=== PATIENT | female | born 1940 | race Caucasian/White ===

== ENCOUNTER → 2017-01-24 | Outpatient (CLI) | payer MEDICARE ==
[~2017-01-24] VITALS: Ht 165.1 cm; Wt 46.7 kg
[~2017-01-24] MED LIST: ADV500 IH; ASPI-556 PO; GABA-531 PO; HYDR25TA PO; LISI1TAB13 PO; MIRT30 PO; NAPR375T4 PO; NIFE30TA66 PO; OMEP20 PO; OXYC1TAB66 PO; RISP2TAB76 PO
[2017-01-24 10:38] VITALS: BP 111/69
== END | disposition home or self-care (01) ==
LOC: SRCNTR 10:23
PROVIDERS: ATTEND Hospitalist
DX: J44.9 Chronic obstructive pulmonary disease, unspecified (principal); I10 Essential (primary) hypertension; R63.0 Anorexia; F32.9 Major depressive disorder, single episode, unspecified; F41.9 Anxiety disorder, unspecified; Z86.73 Personal history of transient ischemic attack (TIA), and cerebral infarction without residual deficits
CPT/HCPCS: G0463

== ENCOUNTER 2021-11-26 03:26 | Inpatient (IN) | payer MEDICARE, MEDICAID ==
[~2021-11-26] VITALS: Ht 165.1 cm; Wt 48.1 kg
[~2021-11-26 03:26] MED LIST changes: +GABA-1181 PO; -GABA-531 PO; -HYDR25TA PO; +HYDR25TA2 PO; +NAPR-1193 PO; -NAPR375T4 PO
[2021-11-26] MEDS ORDERED: IPRATROPIUM BROMIDE 0.5 MG/2.5 ML NEB SOLUTION NEB ONE ×3 (03:45→11:15)
[2021-11-26] MEDS ORDERED: ALBUTEROL SULFATE 5 MG/ML 20 ML NEB SOLN [BULK] NEB ONE ×3 (03:45→11:15)
[2021-11-26 03:51] LABS: BASOPHILS % (AUTO) 0.8 % (0.0-2.0); EOSINOPHILS % (AUTO) 8.5 % (1.0-6.0); HEMATOCRIT 40.3 % (36-46); HEMOGLOBIN 13.3 g/dL (12.0-16.0); LYMPHOCYTES # (AUTO) 2.5 K/uL (1.0-4.8); LYMPHOCYTES % (AUTO) 41.1 % (22.0-44.0); MEAN CORPUSCULAR HEMOGLOBIN 28.5 pg (26.0-34.0); MEAN CORPUSCULAR HGB CONC 33.1 G/dL (31.0-37.0); MEAN CORPUSCULAR VOLUME 86 fL (80-100); MONOCYTES # (AUTO) 0.7 K/uL (0.1-1.0); MONOCYTES % (AUTO) 11.3 % (2.0-9.0); NEUTROPHILS # (AUTO) 2.4 K/uL (1.8-7.7); NEUTROPHILS % (AUTO) 38.3 % (40.0-70.0); PLATELET COUNT (AUTO) 267 K/uL (150-450); RED BLOOD CELL COUNT(AUTO) 4.69 MIL/uL (4.00-5.20); RED CELL DISTRIBUTION WIDTH 15.6 % (11.5-14.5)
[2021-11-26 03:59] LABS: CALCIUM, TOTAL 9.3 mg/dL (8.8-10.5); CREATININE 1.2 mg/dL (0.60-1.30); POTASSIUM 4.1 mmol/L (3.5-5.1)
[2021-11-26 04:05] LABS: ALBUMIN 3.4 g/dL (3.4-5.0); BILIRUBIN,TOTAL 0.6 mg/dL (0.1-1.0); TOTAL PROTEIN, SERUM 8.2 g/dL (6.4-8.2)
[2021-11-26 05:29] LABS: COVID AG,FIA SOURCE NASAL SWAB
[2021-11-26] MEDS ORDERED: MIRT-92 (14:27)
[2021-11-26] MEDS ORDERED: IPRA3AMP24 NEB (14:27)
[2021-11-26] MEDS ORDERED: FERR324T4 PO (14:27)
[2021-11-26] MEDS ORDERED: FLUT1BLS IH (14:27)
[2021-11-26] MEDS ORDERED: HYDR25TA PO (14:27)
[2021-11-26] MEDS ORDERED: ALEN70TA65 PO (14:27)
[2021-11-26] MEDS ORDERED: LOSA100T58 PO (14:27)
[2021-11-26] MEDS ORDERED: ERGO500054 PO (14:27)
[2021-11-26] MEDS ORDERED: CALC-462 PO (14:27)
[2021-11-26] MEDS ORDERED: ALOG6.252 PO (14:27)
[2021-11-26] MEDS ORDERED: CALC-1271 PO (14:27)
[2021-11-26] MEDS ORDERED: ASPI-1444 PO (14:27)
[2021-11-26] MEDS ORDERED: SITA25 PO (14:27)
[2021-11-26] MEDS ORDERED: ARIP5TAB37 PO (14:27)
[2021-11-26] MEDS ORDERED: IPRAHFA IH (14:27)
[2021-11-26] MEDS ORDERED: ONDANSETRON HCL 4 MG/2 ML VIAL IVP PRN (14:30)
[2021-11-26] MEDS ORDERED: ALBUTEROL SULFATE 2.5 MG/0.5 ML NEB SOLUTION NEB PRN (14:30)
[2021-11-26] MEDS ORDERED: ZOLPIDEM TARTRATE 5 MG TABLET PO PRN (14:30)
[2021-11-26] MEDS ORDERED: NAPROXEN 375 MG TABLET PO PRN (14:30)
[2021-11-26] MEDS ORDERED: MAGNESIUM HYDROXIDE SUSPENSION 30 ML UDCUP PO PRN (14:30)
[2021-11-26] MEDS ORDERED: ACETAMINOPHEN 325 MG TABLET PO PRN (14:30)
[2021-11-26] MEDS ORDERED: BISACODYL 10 MG RECTAL RECTAL SUPPOSITORY PR PRN (14:30)
[2021-11-26] MEDS ORDERED: MORPHINE SULFATE 2 MG/ML SYRINGE IVP PRN (14:30)
[2021-11-26] MEDS ORDERED: IPRATROPIUM BROMIDE 0.5 MG/2.5 ML NEB SOLUTION NEB PRN (14:30)
[2021-11-26] MEDS ORDERED: OxyCODONE HCL/ACETAMINOPHEN 5-325 MG TABLET PO PRN (14:30)
[2021-11-26] MEDS: IPRATROPIUM BROMIDE 0.5 MG/2.5 ML NEB SOLUTION NEB SCH ×3 (14:58→22:59)
[2021-11-26] MEDS: ALBUTEROL SULFATE 2.5 MG/0.5 ML NEB SOLUTION NEB SCH ×3 (15:00→22:59)
[2021-11-26] MEDS: HEPARIN SODIUM,PORCINE 5,000 UNITS/ML VIAL SQ SCH ×2 (15:55→23:57)
[2021-11-26] MEDS: GABAPENTIN 300 MG CAPSULE PO SCH ×2 (15:55→21:58)
[2021-11-26] MEDS: MethylPREDNISolone SOD SUCC 125 MG/2 ML VIAL IVP SCH ×2 (17:21→23:57)
[2021-11-26 20:56] VITALS: BP 140/90
[2021-11-26] MEDS: RisperiDONE 2 MG TABLET PO SCH (21:58)
[2021-11-26] MEDS: DOCUSATE SODIUM 100 MG CAPSULE PO SCH (21:58)
[2021-11-26] MEDS: MIRTAZAPINE 30 MG TABLET PO SCH (21:58)
[2021-11-27 00:01] VITALS: BP 133/85
[2021-11-27] MEDS: ALBUTEROL SULFATE 2.5 MG/0.5 ML NEB SOLUTION NEB SCH ×6 (02:38→23:05)
[2021-11-27] MEDS: IPRATROPIUM BROMIDE 0.5 MG/2.5 ML NEB SOLUTION NEB SCH ×6 (02:38→23:05)
[2021-11-27 05:51] VITALS: BP 135/94
[2021-11-27] MEDS: MethylPREDNISolone SOD SUCC 125 MG/2 ML VIAL IVP SCH ×3 (05:59→18:43)
[2021-11-27 07:45] VITALS: BP 143/92
[2021-11-27] MEDS ORDERED: OMEPRAZOLE 20 MG CAPSULE PO SCH (09:00)
[2021-11-27] MEDS ORDERED: HYDROCHLOROTHIAZIDE 25 MG TABLET PO SCH (09:00)
[2021-11-27] MEDS ORDERED: ASPIRIN 81 MG DR TABLET PO SCH (09:00)
[2021-11-27] MEDS: NIFEdipine 30 MG ER TABLET PO SCH (10:23)
[2021-11-27] MEDS: HEPARIN SODIUM,PORCINE 5,000 UNITS/ML VIAL SQ SCH ×2 (10:23→16:22)
[2021-11-27] MEDS: GABAPENTIN 300 MG CAPSULE PO SCH ×3 (10:24→21:28)
[2021-11-27] MEDS: DOCUSATE SODIUM 100 MG CAPSULE PO SCH ×2 (10:24→21:28)
[2021-11-27] MEDS: RisperiDONE 2 MG TABLET PO SCH ×2 (10:24→21:28)
[2021-11-27] MEDS: PANTOPRAZOLE SODIUM 40 MG DR TABLET PO SCH (10:24)
[2021-11-27 11:56] VITALS: BP 142/91
[2021-11-27 16:13] VITALS: BP 139/99
[2021-11-27 19:41] VITALS: BP 124/75
[2021-11-27] MEDS: MIRTAZAPINE 30 MG TABLET PO SCH (21:28)
[2021-11-28] VITALS (7 sets, daily range): BP systolic 107–140; BP diastolic 76–97
[2021-11-28] MEDS: MethylPREDNISolone SOD SUCC 125 MG/2 ML VIAL IVP SCH ×4 (00:26→19:12)
[2021-11-28] MEDS: HEPARIN SODIUM,PORCINE 5,000 UNITS/ML VIAL SQ SCH ×3 (00:27→16:57)
[2021-11-28] MEDS: IPRATROPIUM BROMIDE 0.5 MG/2.5 ML NEB SOLUTION NEB SCH ×7 (03:00→23:11)
[2021-11-28] MEDS: ALBUTEROL SULFATE 2.5 MG/0.5 ML NEB SOLUTION NEB SCH ×7 (03:00→23:11)
[2021-11-28] MEDS ORDERED: DEXTROSE 50%-WATER 25 GM/50 ML SYRINGE IVP PRN ×2 (06:00)
[2021-11-28] MEDS: INSULIN LISPRO 100 UNITS/ML SQ PRN (06:46)
[2021-11-28 06:53] LABS: BASOPHILS % (AUTO) 0.6 % (0.0-2.0); EOSINOPHILS % (AUTO) 0 % (1.0-6.0); HEMATOCRIT 38.2 % (36-46); HEMOGLOBIN 12.5 g/dL (12.0-16.0); LYMPHOCYTES # (AUTO) 0.4 K/uL (1.0-4.8); MEAN CORPUSCULAR HEMOGLOBIN 28.2 pg (26.0-34.0); MEAN CORPUSCULAR HGB CONC 32.7 G/dL (31.0-37.0); MEAN CORPUSCULAR VOLUME 86 fL (80-100); MONOCYTES # (AUTO) 0.3 K/uL (0.1-1.0); MONOCYTES % (AUTO) 2.4 % (2.0-9.0); PLATELET COUNT (AUTO) 240 K/uL (150-450); RED BLOOD CELL COUNT(AUTO) 4.43 MIL/uL (4.00-5.20); RED CELL DISTRIBUTION WIDTH 16.2 % (11.5-14.5)
[2021-11-28 07:01] LABS: CALCIUM, TOTAL 9.7 mg/dL (8.8-10.5); CREATININE 1.74 mg/dL (0.60-1.30)
[2021-11-28 07:07] LABS: ALBUMIN 3.1 g/dL (3.4-5.0); BILIRUBIN,TOTAL 0.5 mg/dL (0.1-1.0); TOTAL PROTEIN, SERUM 7.7 g/dL (6.4-8.2)
[2021-11-28] MEDS: DOCUSATE SODIUM 100 MG CAPSULE PO SCH ×2 (09:00→21:28)
[2021-11-28] MEDS: ARIPiprazole 5 MG TABLET PO SCH (09:00)
[2021-11-28] MEDS: ASPIRIN 81 MG DR TABLET PO SCH (09:00)
[2021-11-28] MEDS: RisperiDONE 2 MG TABLET PO SCH ×2 (09:00→21:28)
[2021-11-28] MEDS: SitaGLIPtin PHOSPHATE 25 MG TABLET PO SCH (09:00)
[2021-11-28] MEDS ORDERED: ALENDRONATE SODIUM 70 MG TABLET PO SCH (09:00)
[2021-11-28] MEDS: GABAPENTIN 300 MG CAPSULE PO SCH ×3 (09:00→21:28)
[2021-11-28] MEDS: HYDROCHLOROTHIAZIDE 25 MG TABLET PO SCH (09:00)
[2021-11-28] MEDS: NIFEdipine 30 MG ER TABLET PO SCH (09:00)
[2021-11-28] MEDS: PANTOPRAZOLE SODIUM 40 MG DR TABLET PO SCH (09:00)
[2021-11-28] MEDS ORDERED: ALBU8HFA IH (16:57)
[2021-11-28] MEDS ORDERED: MIRT-6 PO (16:57)
[2021-11-28] MEDS ORDERED: METO25 PO (16:57)
[2021-11-28] MEDS ORDERED: MIRTAZAPINE 15 MG TABLET PO SCH (21:00)
[2021-11-28] MEDS: MIRTAZAPINE 30 MG TABLET PO SCH (21:28)
[2021-11-29] MEDS: HEPARIN SODIUM,PORCINE 5,000 UNITS/ML VIAL SQ SCH ×3 (00:25→18:04)
[2021-11-29] MEDS: MethylPREDNISolone SOD SUCC 125 MG/2 ML VIAL IVP SCH ×4 (00:25→18:08)
[2021-11-29] MEDS: ALBUTEROL SULFATE 2.5 MG/0.5 ML NEB SOLUTION NEB SCH ×6 (03:15→23:25)
[2021-11-29] MEDS: IPRATROPIUM BROMIDE 0.5 MG/2.5 ML NEB SOLUTION NEB SCH ×6 (03:15→23:25)
[2021-11-29 04:42] VITALS: BP 129/81
[2021-11-29] MEDS: INSULIN LISPRO 100 UNITS/ML SQ PRN ×3 (06:10→21:48)
[2021-11-29 06:27] LABS: GLUCOMETER DEV NAME(LOC) 5S.2B; GLUCOSE,POINT OF CARE 235 MG/DL (70-110)
[2021-11-29] MEDS ORDERED: ALENDRONATE SODIUM 70 MG TABLET PO SCH (06:30)
[2021-11-29 06:49] LABS: BASOPHILS % (AUTO) 0.4 % (0.0-2.0); EOSINOPHILS % (AUTO) 0 % (1.0-6.0); HEMOGLOBIN 12.6 g/dL (12.0-16.0); LYMPHOCYTES # (AUTO) 0.3 K/uL (1.0-4.8); LYMPHOCYTES % (AUTO) 2.3 % (22.0-44.0); MEAN CORPUSCULAR HEMOGLOBIN 27.6 pg (26.0-34.0); MEAN CORPUSCULAR HGB CONC 31.6 G/dL (31.0-37.0); MEAN CORPUSCULAR VOLUME 88 fL (80-100); MONOCYTES # (AUTO) 0.2 K/uL (0.1-1.0); MONOCYTES % (AUTO) 1.5 % (2.0-9.0); PLATELET COUNT (AUTO) 214 K/uL (150-450); RED BLOOD CELL COUNT(AUTO) 4.57 MIL/uL (4.00-5.20); RED CELL DISTRIBUTION WIDTH 16.3 % (11.5-14.5)
[2021-11-29 07:07] LABS: ALBUMIN 3.1 g/dL (3.4-5.0); BILIRUBIN,TOTAL 0.3 mg/dL (0.1-1.0); CALCIUM, TOTAL 9.7 mg/dL (8.8-10.5); CREATININE 1.71 mg/dL (0.60-1.30); POTASSIUM 5.1 mmol/L (3.5-5.1); TOTAL PROTEIN, SERUM 7.8 g/dL (6.4-8.2)
[2021-11-29 07:11] VITALS: BP 130/89
[2021-11-29 07:26] LABS: NEUTROPHILS % (AUTO) 95.8 % (40.0-70.0)
[2021-11-29 08:26] LABS: GLUCOMETER DEV NAME(LOC) 5S.1B; GLUCOSE,POINT OF CARE 252 MG/DL (70-110)
[2021-11-29 08:26] LABS: GLUCOMETER DEV NAME(LOC) 5S.1B; GLUCOSE,POINT OF CARE 193 MG/DL (70-110)
[2021-11-29] MEDS: SitaGLIPtin PHOSPHATE 25 MG TABLET PO SCH (08:40)
[2021-11-29] MEDS: PANTOPRAZOLE SODIUM 40 MG DR TABLET PO SCH (08:41)
[2021-11-29] MEDS: DOCUSATE SODIUM 100 MG CAPSULE PO SCH ×2 (08:41→20:22)
[2021-11-29] MEDS: NIFEdipine 30 MG ER TABLET PO SCH (08:42)
[2021-11-29] MEDS: GABAPENTIN 300 MG CAPSULE PO SCH ×3 (08:42→20:22)
[2021-11-29] MEDS: ARIPiprazole 5 MG TABLET PO SCH (08:43)
[2021-11-29] MEDS: ASPIRIN 81 MG DR TABLET PO SCH (08:43)
[2021-11-29] MEDS: RisperiDONE 2 MG TABLET PO SCH ×2 (08:43→20:22)
[2021-11-29] MEDS: HYDROCHLOROTHIAZIDE 25 MG TABLET PO SCH (08:44)
[2021-11-29 11:40] VITALS: BP 128/86
[2021-11-29 15:56] VITALS: BP 135/93
[2021-11-29 20:04] VITALS: BP 128/87
[2021-11-29] MEDS: MIRTAZAPINE 30 MG TABLET PO SCH (20:22)
[2021-11-30 00:01] VITALS: BP 137/64
[2021-11-30] MEDS: MethylPREDNISolone SOD SUCC 125 MG/2 ML VIAL IVP SCH ×5 (01:09→23:44)
[2021-11-30] MEDS: HEPARIN SODIUM,PORCINE 5,000 UNITS/ML VIAL SQ SCH ×4 (01:10→23:44)
[2021-11-30] MEDS: IPRATROPIUM BROMIDE 0.5 MG/2.5 ML NEB SOLUTION NEB SCH ×6 (02:48→23:26)
[2021-11-30] MEDS: ALBUTEROL SULFATE 2.5 MG/0.5 ML NEB SOLUTION NEB SCH ×6 (02:48→23:26)
[2021-11-30 04:56] VITALS: BP 136/89
[2021-11-30] MEDS: INSULIN LISPRO 100 UNITS/ML SQ PRN ×4 (06:10→20:16)
[2021-11-30 07:42] VITALS: BP 140/91
[2021-11-30] MEDS: DOCUSATE SODIUM 100 MG CAPSULE PO SCH ×2 (08:12→20:15)
[2021-11-30] MEDS: RisperiDONE 2 MG TABLET PO SCH ×2 (08:13→20:15)
[2021-11-30] MEDS: GABAPENTIN 300 MG CAPSULE PO SCH ×3 (08:13→20:15)
[2021-11-30] MEDS: ASPIRIN 81 MG DR TABLET PO SCH (08:14)
[2021-11-30] MEDS: ARIPiprazole 5 MG TABLET PO SCH (08:14)
[2021-11-30] MEDS: NIFEdipine 30 MG ER TABLET PO SCH (08:14)
[2021-11-30] MEDS: PANTOPRAZOLE SODIUM 40 MG DR TABLET PO SCH (08:15)
[2021-11-30 08:16] LABS: BASOPHILS % (AUTO) 0.2 % (0.0-2.0); EOSINOPHILS % (AUTO) 0 % (1.0-6.0); HEMATOCRIT 37.7 % (36-46); HEMOGLOBIN 12.6 g/dL (12.0-16.0); LYMPHOCYTES # (AUTO) 0.3 K/uL (1.0-4.8); LYMPHOCYTES % (AUTO) 3.2 % (22.0-44.0); MEAN CORPUSCULAR HEMOGLOBIN 28.6 pg (26.0-34.0); MEAN CORPUSCULAR HGB CONC 33.4 G/dL (31.0-37.0); MEAN CORPUSCULAR VOLUME 86 fL (80-100); MONOCYTES # (AUTO) 0.3 K/uL (0.1-1.0); MONOCYTES % (AUTO) 3.1 % (2.0-9.0); NEUTROPHILS # (AUTO) 8.2 K/uL (1.8-7.7); PLATELET COUNT (AUTO) 210 K/uL (150-450); RED BLOOD CELL COUNT(AUTO) 4.39 MIL/uL (4.00-5.20); RED CELL DISTRIBUTION WIDTH 16.2 % (11.5-14.5)
[2021-11-30] MEDS: SitaGLIPtin PHOSPHATE 25 MG TABLET PO SCH (08:16)
[2021-11-30] MEDS: HYDROCHLOROTHIAZIDE 25 MG TABLET PO SCH (08:16)
[2021-11-30 08:19] LABS: NEUTROPHILS % (AUTO) 93.5 % (40.0-70.0)
[2021-11-30 08:39] LABS: ALBUMIN 2.8 g/dL (3.4-5.0); BILIRUBIN,TOTAL 0.4 mg/dL (0.1-1.0); CALCIUM, TOTAL 9.1 mg/dL (8.8-10.5); CREATININE 1.52 mg/dL (0.60-1.30); POTASSIUM 5.1 mmol/L (3.5-5.1); TOTAL PROTEIN, SERUM 7.2 g/dL (6.4-8.2)
[2021-11-30 11:36] VITALS: BP 152/95
[2021-11-30 15:49] VITALS: BP 147/95
[2021-11-30 16:38] LABS: GLUCOMETER DEV NAME(LOC) 5S.2B; GLUCOSE,POINT OF CARE 196 MG/DL (70-110)
[2021-11-30 16:38] LABS: GLUCOMETER DEV NAME(LOC) 5N.3; GLUCOSE,POINT OF CARE 266 MG/DL (70-110)
[2021-11-30 19:50] VITALS: BP 136/88
[2021-11-30] MEDS: MIRTAZAPINE 30 MG TABLET PO SCH (20:15)
[2021-12-01] VITALS (7 sets, daily range): BP systolic 105–143; BP diastolic 51–98
[2021-12-01] MEDS: IPRATROPIUM BROMIDE 0.5 MG/2.5 ML NEB SOLUTION NEB SCH ×6 (02:35→23:00)
[2021-12-01] MEDS: ALBUTEROL SULFATE 2.5 MG/0.5 ML NEB SOLUTION NEB SCH ×6 (02:35→23:00)
[2021-12-01] MEDS: MethylPREDNISolone SOD SUCC 125 MG/2 ML VIAL IVP SCH (06:10)
[2021-12-01] MEDS: INSULIN LISPRO 100 UNITS/ML SQ PRN ×4 (06:11→20:12)
[2021-12-01] MEDS: HEPARIN SODIUM,PORCINE 5,000 UNITS/ML VIAL SQ SCH ×3 (09:25→23:31)
[2021-12-01] MEDS: PANTOPRAZOLE SODIUM 40 MG DR TABLET PO SCH (09:25)
[2021-12-01] MEDS: DOCUSATE SODIUM 100 MG CAPSULE PO SCH ×2 (09:25→20:11)
[2021-12-01] MEDS: RisperiDONE 2 MG TABLET PO SCH ×2 (09:26→20:11)
[2021-12-01] MEDS: ASPIRIN 81 MG DR TABLET PO SCH (09:26)
[2021-12-01] MEDS: GABAPENTIN 300 MG CAPSULE PO SCH ×3 (09:26→20:11)
[2021-12-01] MEDS: HYDROCHLOROTHIAZIDE 25 MG TABLET PO SCH (09:26)
[2021-12-01] MEDS: SitaGLIPtin PHOSPHATE 25 MG TABLET PO SCH (09:26)
[2021-12-01] MEDS: NIFEdipine 30 MG ER TABLET PO SCH (09:26)
[2021-12-01] MEDS: ARIPiprazole 5 MG TABLET PO SCH (09:26)
[2021-12-01 11:41] LABS: GLUCOMETER DEV NAME(LOC) 5S.2B; GLUCOSE,POINT OF CARE 252 MG/DL (70-110)
[2021-12-01 11:41] LABS: GLUCOMETER DEV NAME(LOC) 5S.2B; GLUCOSE,POINT OF CARE 243 MG/DL (70-110)
[2021-12-01 11:42] LABS: GLUCOMETER DEV NAME(LOC) 5S.2B; GLUCOSE,POINT OF CARE 382 MG/DL (70-110)
[2021-12-01] MEDS: NICOTINE 7 MG/24 HOUR PATCH TD SCH (17:43)
[2021-12-01 18:01] LABS: GLUCOMETER DEV NAME(LOC) 5N.1C; GLUCOSE,POINT OF CARE 254 MG/DL (70-110)
[2021-12-01] MEDS: MethylPREDNISolone SOD SUCC 40 MG/ML VIAL IVP SCH ×2 (18:47→23:30)
[2021-12-01] MEDS: MIRTAZAPINE 30 MG TABLET PO SCH (20:11)
[2021-12-01 22:31] LABS: CALCIUM, TOTAL 9.1 mg/dL (8.8-10.5); CREATININE 1.48 mg/dL (0.60-1.30); POTASSIUM 4.6 mmol/L (3.5-5.1)
[2021-12-01] MEDS: INSULIN GLARGINE,HUM.REC.ANLOG 100 UNITS/ML SQ SCH (22:49)
[2021-12-01] MEDS ORDERED: SODIUM CHLORIDE 0.9% 1,000 ML IV ONE (23:15)
[2021-12-02] MEDS: IPRATROPIUM BROMIDE 0.5 MG/2.5 ML NEB SOLUTION NEB SCH ×3 (03:00→11:51)
[2021-12-02] MEDS: ALBUTEROL SULFATE 2.5 MG/0.5 ML NEB SOLUTION NEB SCH ×3 (03:00→11:51)
[2021-12-02 04:30] VITALS: BP 121/84
[2021-12-02 05:56] LABS: GLUCOMETER DEV NAME(LOC) 5S.2B; GLUCOSE,POINT OF CARE 197 MG/DL (70-110)
[2021-12-02 05:56] LABS: GLUCOMETER DEV NAME(LOC) 5S.2B; GLUCOSE,POINT OF CARE 173 MG/DL (70-110)
[2021-12-02 05:56] LABS: GLUCOMETER DEV NAME(LOC) 5S.2B; GLUCOSE,POINT OF CARE 179 MG/DL (70-110)
[2021-12-02] MEDS: MethylPREDNISolone SOD SUCC 40 MG/ML VIAL IVP SCH (06:36)
[2021-12-02] MEDS: INSULIN LISPRO 100 UNITS/ML SQ PRN (06:37)
[2021-12-02 07:40] VITALS: BP 97/68
[2021-12-02 07:40] LABS: CALCIUM, TOTAL 8.5 mg/dL (8.8-10.5); CREATININE 1.74 mg/dL (0.60-1.30); POTASSIUM 4.9 mmol/L (3.5-5.1)
[2021-12-02] MEDS: INSULIN GLARGINE,HUM.REC.ANLOG 100 UNITS/ML SQ SCH (09:00)
[2021-12-02] MEDS: RisperiDONE 2 MG TABLET PO SCH (09:00)
[2021-12-02] MEDS: NIFEdipine 30 MG ER TABLET PO SCH (09:00)
[2021-12-02] MEDS: HYDROCHLOROTHIAZIDE 25 MG TABLET PO SCH (09:00)
[2021-12-02] MEDS: ARIPiprazole 5 MG TABLET PO SCH (09:00)
[2021-12-02] MEDS: ASPIRIN 81 MG DR TABLET PO SCH (09:00)
[2021-12-02] MEDS ORDERED: PredniSONE 20 MG TABLET PO SCH (09:00)
[2021-12-02] MEDS: DOCUSATE SODIUM 100 MG CAPSULE PO SCH (09:00)
[2021-12-02] MEDS: GABAPENTIN 300 MG CAPSULE PO SCH (09:00)
[2021-12-02] MEDS: PANTOPRAZOLE SODIUM 40 MG DR TABLET PO SCH (09:00)
[2021-12-02] MEDS: HEPARIN SODIUM,PORCINE 5,000 UNITS/ML VIAL SQ SCH (09:44)
[2021-12-02] MEDS: NICOTINE 7 MG/24 HOUR PATCH TD SCH (09:44)
[2021-12-02 10:28] LABS: ABG BASE EXCESS 3.6 mmol/L (-2.0-3.0); ABG HCO3 27.6 mmol/L (22.0-26.0); ABG METHEMOGLOBIN 0.3 % (0.0-1.5); ABG OXYGEN CONTENT 18.4 mL/dL (15.0-23.0); ABG OXYGEN SATURATION 93.5 % (95.0-98.0); ABG OXYHEMOGLOBIN 92.3 % (94.0-100.0); ABG PCO2 37 mmHg (35-45); ABG PH 7.479 (7.35-7.450); ABG TOTAL HEMOGLOBIN 14.2 G/dL (12.0-18.0); PO2, ARTERIAL BG 65.4 mmHg (75.0-83.0); SOURCE, BLOOD GAS ARTERIAL; TEMPERATURE, FAHRENHEIT, BG 98.9 FAHREN (96.0-98.6)
[2021-12-02 10:30] LABS: SITE, BLOOD GAS RT RADIAL
[2021-12-02 10:31] LABS: O2 DEVICE,BLOOD GAS NON REBREATHER (ROOM AIR)
[2021-12-02 11:15] VITALS: BP 99/69
[2021-12-02 11:31] LABS: GLUCOMETER DEV NAME(LOC) 5S.1B; GLUCOSE,POINT OF CARE 214 MG/DL (70-110)
[2021-12-02 11:51] LABS: GLUCOMETER DEV NAME(LOC) 5N.3; GLUCOSE,POINT OF CARE 295 MG/DL (70-110)
[2021-12-02 11:51] LABS: GLUCOMETER DEV NAME(LOC) 5N.1C; GLUCOSE,POINT OF CARE 139 MG/DL (70-110)
[2021-12-02 11:51] LABS: GLUCOMETER DEV NAME(LOC) 5N.3; GLUCOSE,POINT OF CARE 268 MG/DL (70-110)
[2021-12-02 12:00] VITALS: BP 99/54
[2021-12-02] MEDS ORDERED: MethylPREDNISolone SOD SUCC 125 MG/2 ML VIAL IVP SCH (12:00)
[2021-12-02 13:00] LABS: ABG METHEMOGLOBIN 0.3 % (0.0-1.5); SOURCE, BLOOD GAS ARTERIAL; TEMPERATURE, FAHRENHEIT, BG 98.6 FAHREN (96.0-98.6)
[2021-12-02] MEDS ORDERED: PIPERACILLIN SODIUM/TAZOBACTAM 2.25 GM in DEXTROSE 5%-WATER 50 ML IV SCH (13:00)
[2021-12-02 13:03] LABS: ABG CARBOXYHEMOGLOBIN 0.6 % (0.0-1.5); ABG HCO3 25.2 mmol/L (22.0-26.0); ABG OXYGEN CONTENT 18.8 mL/dL (15.0-23.0); ABG OXYGEN SATURATION 93.4 % (95.0-98.0); ABG OXYHEMOGLOBIN 92.6 % (94.0-100.0); ABG PCO2 42 mmHg (35-45); ABG PH 7.406 (7.35-7.450); ABG TOTAL HEMOGLOBIN 14.4 G/dL (12.0-18.0); PO2, ARTERIAL BG 68.8 mmHg (75.0-83.0)
[2021-12-02 13:05] LABS: O2 DEVICE,BLOOD GAS BIPAP (ROOM AIR); SITE, BLOOD GAS LFT RADIAL; SPONTANEOUS VT, BG 410 ml
[2021-12-02 15:14] LABS: ABG BASE EXCESS -0.3 mmol/L (-2.0-3.0); ABG CARBOXYHEMOGLOBIN 0.4 % (0.0-1.5); ABG HCO3 23.9 mmol/L (22.0-26.0); ABG METHEMOGLOBIN 0.3 % (0.0-1.5); ABG OXYGEN CONTENT 18.2 mL/dL (15.0-23.0); ABG OXYGEN SATURATION 88.8 % (95.0-98.0); ABG OXYHEMOGLOBIN 88.2 % (94.0-100.0); ABG PCO2 43 mmHg (35-45); ABG PH 7.382 (7.35-7.450); ABG TOTAL HEMOGLOBIN 14.7 G/dL (12.0-18.0); O2 DEVICE,BLOOD GAS BIPAP (ROOM AIR); PO2, ARTERIAL BG 56.7 mmHg (75.0-83.0); SITE, BLOOD GAS LFT RADIAL; SOURCE, BLOOD GAS ARTERIAL; SPONTANEOUS VT, BG 610 ml; TEMPERATURE, FAHRENHEIT, BG 98.5 FAHREN (96.0-98.6)
[2021-12-02 16:00] VITALS: BP_SYST 107; BP_SYST 95; BP_DIAS 50; BP_DIAS 76
[2021-12-02] MEDS ORDERED: NOREPINEPHRINE 8 MG/D5%-WATER 250 ML IV ONE (16:42)
[2021-12-02 17:22] LABS: ABG A-A DIFF O2 609.4 mmHg (10-20.0); ABG BASE EXCESS -5.8 mmol/L (-2.0-3.0); ABG CARBOXYHEMOGLOBIN 0.2 % (0.0-1.5); ABG HCO3 19.5 mmol/L (22.0-26.0); ABG METHEMOGLOBIN 0.3 % (0.0-1.5); ABG OXYGEN CONTENT 16.7 mL/dL (15.0-23.0); ABG OXYGEN SATURATION 86.5 % (95.0-98.0); ABG OXYHEMOGLOBIN 86.1 % (94.0-100.0); ABG PCO2 46 mmHg (35-45); ABG PH 7.278 (7.35-7.450); ABG TOTAL HEMOGLOBIN 13.8 G/dL (12.0-18.0); O2 DEVICE,BLOOD GAS VENTILATOR (ROOM AIR); PEEP,BG 5 cm H2O; PO2, ARTERIAL BG 58.1 mmHg (75.0-83.0); SITE, BLOOD GAS LFT RADIAL; SOURCE, BLOOD GAS ARTERIAL; TEMPERATURE, FAHRENHEIT, BG 98.5 FAHREN (96.0-98.6); VT, ABG 400 ml
[2021-12-02] MEDS ORDERED: HEPARIN SODIUM 25000 UNITS/D5W 250 ML IV PRN (17:30)
[2021-12-02] MEDS ORDERED: HEPARIN SODIUM,PORCINE 5,000 UNITS/ML VIAL IVP ONE (17:30)
[2021-12-02] MEDS ORDERED: HEPARIN SODIUM,PORCINE 5,000 UNITS/ML VIAL IVP PRN ×2 (17:30)
[2021-12-02] MEDS ORDERED: ROCURONIUM BROMIDE 10 MG/ML 5 ML VIAL IV ONE (17:43)
[2021-12-02] MEDS ORDERED: ETOMIDATE 2 MG/ML 10 ML VIAL IV ONE (17:43)
[2021-12-02] MEDS ORDERED: NOREPINEPHRINE 8 MG/D5%-WATER 250 ML IV PRN (20:00)
[2021-12-02 20:05] LABS: GLUCOMETER DEV NAME(LOC) 5S.2B; GLUCOSE,POINT OF CARE 123 MG/DL (70-110)
== END 2021-12-02 17:44 | DRG 208 ==
LOC: EMS 03:27 → 5S 20:16 → ICU 12-02 14:00
PROVIDERS: ADMIT Hospitalist; ATTEND Hospitalist
PROC: 5A1935Z Respiratory Ventilation, Less than 24 Consecutive Hours (ICD-10-PCS; principal; 2021-12-02)
PROC: 0BH17EZ Insertion of Endotracheal Airway into Trachea, Via Natural or Artificial Opening (ICD-10-PCS; 2021-12-02)
PROC: 5A09357 Assistance with Respiratory Ventilation, Less than 24 Consecutive Hours, Continuous Positive Airway Pressure (ICD-10-PCS; 2021-12-02)
PROC: 5A2204Z Restoration of Cardiac Rhythm, Single (ICD-10-PCS; 2021-12-02)
PROC: 05HY33Z Insertion of Infusion Device into Upper Vein, Percutaneous Approach (ICD-10-PCS; 2021-12-02)
PROC: B543ZZA Ultrasonography of Right Jugular Veins, Guidance (ICD-10-PCS; 2021-12-02)
PROC: 5A12012 Performance of Cardiac Output, Single, Manual (ICD-10-PCS; 2021-12-02)
DX: J44.1 Chronic obstructive pulmonary disease with (acute) exacerbation (principal); J96.01 Acute respiratory failure with hypoxia; J18.9 Pneumonia, unspecified organism; N17.9 Acute kidney failure, unspecified; G93.40 Encephalopathy, unspecified; I49.01 Ventricular fibrillation; Z66 Do not resuscitate; J44.0 Chronic obstructive pulmonary disease with (acute) lower respiratory infection; Z20.822 Contact with and (suspected) exposure to COVID-19; F17.210 Nicotine dependence, cigarettes, uncomplicated; E11.65 Type 2 diabetes mellitus with hyperglycemia; I10 Essential (primary) hypertension; Z79.84 Long term (current) use of oral hypoglycemic drugs; T38.0X5A Adverse effect of glucocorticoids and synthetic analogues, initial encounter; Y92.89 Other specified places as the place of occurrence of the external cause
CPT/HCPCS: 36600; 70450; 71045; 80048; 80053; 82140; 82805; 82962; 83880; 84484; 85025; 87040; 87077; 87205; 92610; 92950; 93005; 94002; 94640; 94644; 94645; 94660; 97110; 97163; 99291; G0238; J1644; J1815; J2543; J2920; J2930; J3490; J7030; J7060; Q9967; 36415-L1; 36415-TC; J7611; J7613